=== PATIENT | female | born 1935 | race Caucasian/White ===

== ENCOUNTER 2017-02-02 22:39 | Emergency (ER) | payer MEDICARE, BC ==
--- NOTE | 2017-02-02 23:39 | EDM.PDOC ---
ED HPI GENERAL MEDICAL PROBLEM - General Chief Complaint: Respiratory Problem Stated Complaint: coughing, choking whith pills Time Seen by Provider: 02/02/17 23:00 Source of Information: Reports: Patient, Family History Limitations: Reports: Other (patient does have dementia; answers most questions appropriately but repeats self frequently) - History of Present Illness INITIAL COMMENTS - FREE TEXT/NARRATIVE: Patient presents to the ER with concerns of choking on her pills and aspirating. She took her meds at around 930 tonight and started coughing shortly thereafter. relates she was coughing so hard and frequently it seemed as though she couldn't catch her breath. Patient was coughing up sputum that was green-tinged and he relates could have been her iron from earlier as both her evening pills are white. She felt as though something was stuck in her throat. On presentation, continues to cough but with my arrival less than when she arrived. Feels throat is now scratchy. Has not ever aspirated before. No concerns with dysphagia. relates she doesn't drink enough fluids and he is worried she is dry which makes swallowing the large pills more difficult. Onset: Today, Sudden Duration: Hour(s): Location: Reports: Chest Severity: Mild Associated Symptoms: Reports: Cough, cough w sputum. Denies: Chest Pain, Fever/ Chills, Nausea/Vomiting, Shortness of Breath - Related Data Allergies Allergy/AdvReac Type Severity Reaction Status Date / Time celecoxib [From Celebrex] Allergy Swelling Verified 02/02/17 22:49 prednisone Allergy Rash Verified 02/02/17 22:49 Home Meds: Home Meds Gabapentin [Neurontin] 100 mg PO BEDTIME 02/18/14 [History] Levothyroxine 50 mcg PO ACBRK 02/18/14 [History] Cholecalciferol (Vitamin D3) [Vitamin D3] 1,000 unit PO DAILY 08/04/16 [History] Aspirin [Halfprin] 81 mg PO DAILY 09/14/16 [History] Clopidogrel [Plavix] 75 mg PO DAILY 09/14/16 [History] Docusate Sodium 100 mg PO ASDIRECTED 09/14/16 [History] Ferrous Sulfate 325 mg PO BID 09/14/16 [History] Metoprolol Succinate [Toprol Xl] 12.5 mg PO DAILY 09/14/16 [History] Nitroglycerin 0.4 mg PO ASDIRECTED PRN 09/14/16 [History] atorvaSTATin [Lipitor] 40 mg PO DAILY 09/14/16 [History] Donepezil [Aricept] 10 mg PO BEDTIME 02/02/17 [History] Past Medical History HEENT History: Reports: Cataract, Other (See Below) Other HEENT History: tinea Cardiovascular History: Reports: Cardiomyopathy, High Cholesterol, Hypertension , Other (See Below) Other Cardiovascular History: aortic valve reguritation, possible [place] with this July 2016 hospitalization Respiratory History: Reports: Asthma, SOB Genitourinary History: Reports: UTI, Recurrent, Other (See Below) Other Genitourinary History: nocturia; acute renal failure from history Jul 2016 [employer] 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: Other (See Below) Other OB/BYN History: fibrocystic breast disease Musculoskeletal History: Reports: Arthritis, Osteoporosis, Other (See Below) Other Musculoskeletal History: rheumatic fever, Neurological History: Reports: MS, Neuropathy, Peripheral Psychiatric History: Reports: Anxiety, Dementia Other Psychiatric History: dementia Endocrine/Metabolic History: Reports: Hypothyroidism Hematologic History: Reports: B12 Deficiency - Past Surgical History HEENT Surgical History: Reports: Adenoidectomy, Cataract Surgery, Tonsillectomy GI Surgical History: Reports: Colonoscopy Other GI Surgeries/Procedures: had some diarrhea while in hospital in [place] in July 2016 Neurological Surgical History: Reports: None Musculoskeletal Surgical History: Reports: Other (See Below) Dermatological Surgical History: Reports: None Social & Family History - Family History Family Medical History: Noncontributory HEENT: Reports: None Respiratory: Reports: None - Tobacco Use Smoking Status *Q: Former Smoker Used Tobacco, but Quit: Yes Month Tobacco Last Used: 30 YRS Tobacco Use Comment: PT QUIT 30 YEARS AGO Second Hand Smoke Exposure: No - Caffeine Use Caffeine Use: Reports: Coffee - Alcohol Use Days Per Week of Alcohol Use: 7 Number of Drinks Per Day: 1 Total Drinks Per Week: 7 - Recreational Drug Use Recreational Drug Use: No ED ROS GENERAL - Review of Systems Review Of Systems: See Below Constitutional: Denies: Fever, Chills, Malaise, Weakness, Decreased Appetite HEENT: Reports: Other (foreign object in throat) Respiratory: Reports: Shortness of Breath, Cough, Sputum. Denies: Wheezing Cardiovascular: Denies: Chest Pain, Edema, Lightheadedness Endocrine: Reports: No Symptoms GI/Abdominal: Denies: Abdominal Pain, Nausea, Vomiting : Reports: No Symptoms Musculoskeletal: Reports: No Symptoms Skin: Reports: No Symptoms Psychiatric: Reports: Other (mild confusion due to dementia, relates normal state) ED EXAM, GENERAL - Physical Exam Exam: See Below Exam Limited By: No Limitations General Appearance: Alert, WD/WN, No Apparent Distress Ears: Normal External Exam, Normal TMs Nose: Normal Inspection, Normal Mucosa, No Blood Throat/Mouth: Normal Inspection, Normal Oropharynx Head: Normocephalic Neck: Normal Inspection, Supple, Non-Tender Respiratory/Chest: No Respiratory Distress, Wheezing Cardiovascular: Regular Rate, Rhythm GI/Abdominal: Normal Bowel Sounds, Soft, Non-Tender Course - Vital Signs Last Recorded V/S: Last Vital Signs Temp 97.2 F 02/02/17 22:43 Pulse 57 L 02/02/17 22:43 Resp 18 02/02/17 22:43 BP 159/99 H 02/02/17 22:43 Pulse Ox 97 02/02/17 22:43 - Orders/Labs/Meds Orders: Active Orders 24 hr Category Date Time Status Chest 2V [CR] Stat Exams 02/02/17 23:39 Ordered Meds: Medications Discontinued Medications Generic Name Dose Route Start Last Admin Trade Name Freq PRN Reason Stop Dose Admin Al Hydroxide/Mg Hydroxide 30 0 ml 02/02/17 23:54 02/03/17 00:09 ml/ Lidocaine HCl 15 ml PO 02/02/17 23:55 45 ml ONETIME ONE Administration - Re-Assessments/Exams Free Text/Narrative Re-Assessment/Exam: 02/03/17 00:26 Patient's coughing has lessened over the last 90 minutes. Has been drinking Sprite without concern. GI cocktail was given. No longer feels like she has anything stuck, throat just feels scratchy. here and advised if she has any further issues, needs to return to ER Departure - Departure Time of Disposition: 00:28 Disposition: Home, Self-Care 01 Condition: Good Clinical Impression: Dysphagia - Discharge Information Forms: ED Department Discharge Additional Instructions: 1. Rest 2. Push fluids 3. Cut pills in half if needed, take with more water 4. Return if cough persists, worsens, develops fever or has shortness of breath - My Orders Last 24 Hours: My Active Orders 02/02/17 23:39 Chest 2V [CR] Stat - Assessment/Plan Last 24 Hours: My Active Orders 02/02/17 23:39 Chest 2V [CR] Stat
[2017-02-02] MEDS ORDERED: Alum Hydrox/Mag Hydrox/Simeth 30 ML, Lidocaine 2% 15 ML PO ONE ×2 (23:54)
[2017-02-03 00:48] VITALS: BP 159/76
== END 2017-02-03 00:35 | disposition home or self-care (01) ==
LOC: CC.ED 22:39
DX: R13.10 Dysphagia, unspecified (principal); I11.9 Hypertensive heart disease without heart failure; E78.00 Pure hypercholesterolemia, unspecified; J45.909 Unspecified asthma, uncomplicated; M19.90 Unspecified osteoarthritis, unspecified site; M81.0 Age-related osteoporosis without current pathological fracture; G35 Multiple sclerosis; F41.9 Anxiety disorder, unspecified; F03.90 Unspecified dementia, unspecified severity, without behavioral disturbance, psychotic disturbance, mood disturbance, and anxiety; E03.9 Hypothyroidism, unspecified; Z87.440 Personal history of urinary (tract) infections; Z87.891 Personal history of nicotine dependence; Z79.82 Long term (current) use of aspirin; Z79.899 Other long term (current) drug therapy; Z88.8 Allergy status to other drugs, medicaments and biological substances
CPT/HCPCS: 71020; 99283; A9270

== ENCOUNTER 2017-11-15 22:12 | Inpatient (IN) | payer MEDICARE, BC ==
[2017-11-15] MEDS ORDERED: Albuterol/Ipratropium 3.0-0.5 MG/3 ML Neb Soln ONE (22:13)
[2017-11-15 22:39] LABS: CHLORIDE,CL 106 mEq/L (98-106); SODIUM,NA 140 mEq/L (136-145)
[2017-11-15] MEDS ORDERED: Albuterol 0.083% 2.5 MG/3 ML Neb Soln NEB PRN (23:34)
[2017-11-15] MEDS ORDERED: Acetaminophen 325 MG Tab PO PRN (23:34)
--- NOTE | 2017-11-15 23:37 | EDM.PDOC ---
ED HPI GENERAL MEDICAL PROBLEM - General Chief Complaint: Respiratory Problem Stated Complaint: SHORT OF BREATH Time Seen by Provider: 11/15/17 22:20 Source of Information: Reports: Patient, Family History Limitations: Reports: Altered Mental Status (history of dementia), Respiratory Distress - History of Present Illness INITIAL COMMENTS - FREE TEXT/NARRATIVE: Belen is an 82 yo female who presents to the ER via private vehicle. Her brought her into the ER, accompanied by their daughter with concerns of shortness of breath. Joan, daughter, admits they are concerned of aspiration pneumonia. states while they were eating yesterday she had almost choked on a piece of food (doesn't recall what they were eating though) and she had a severe coughing spell. He states after she came out of it she appeared to be fine and ended up eating the rest of her meal. Through out the day today it seemed as her coughing had worsened and was having some difficulty breathing and talking. She wanted to go to [facility] this evening and her daughter states a friend had called her stating that Belen wasn't doing well at [facility]. They admit that Belen does suffer from dementia that has been progressively worsening as well. Up until last night she has been feeling well. - Related Data Allergies Allergy/AdvReac Type Severity Reaction Status Date / Time celecoxib [From Celebrex] Allergy Swelling Verified 11/15/17 22:48 prednisone Allergy Rash Verified 11/15/17 22:48 Home Meds: Home Meds Levothyroxine 50 mcg PO ACBRK 02/18/14 [History] Aspirin [Halfprin] 81 mg PO DAILY 09/14/16 [History] Ferrous Sulfate 325 mg PO DAILY 09/14/16 [History] Nitroglycerin 0.4 mg PO ASDIRECTED PRN 09/14/16 [History] atorvaSTATin [Lipitor] 40 mg PO DAILY 09/14/16 [History] Donepezil [Aricept] 10 mg PO BEDTIME 02/02/17 [History] Lisinopril 5 mg PO DAILY 11/15/17 [History] Memantine HCl 10 mg PO BID 11/15/17 [History] Past Medical History HEENT History: Reports: Cataract, Other (See Below) Other HEENT History: tinea Cardiovascular History: Reports: Cardiomyopathy, High Cholesterol, Hypertension , Other (See Below) Other Cardiovascular History: aortic valve reguritation, possible [place] with this July 2016 hospitalization Respiratory History: Reports: Asthma, SOB Genitourinary History: Reports: UTI, Recurrent, Other (See Below) Other Genitourinary History: nocturia; acute renal failure from history Jul 2016 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 (See Below) Other OB/BYN History: fibrocystic breast disease Musculoskeletal History: Reports: Arthritis, Osteoporosis, Other (See Below) Other Musculoskeletal History: rheumatic fever, Neurological History: Reports: MS, Neuropathy, Peripheral Psychiatric History: Reports: Anxiety, Dementia Other Psychiatric History: dementia Endocrine/Metabolic History: Reports: Hypothyroidism Hematologic History: Reports: B12 Deficiency - Past Surgical History HEENT Surgical History: Reports: Adenoidectomy, Cataract Surgery, Tonsillectomy GI Surgical History: Reports: Colonoscopy Other GI Surgeries/Procedures: had some diarrhea while in hospital in [place] in July 2016 Neurological Surgical History: Reports: None Musculoskeletal Surgical History: Reports: Other (See Below) Dermatological Surgical History: Reports: None Social & Family History - Family History Family Medical History: Noncontributory HEENT: Reports: None Respiratory: Reports: None - Tobacco Use Smoking Status *Q: Former Smoker Used Tobacco, but Quit: Yes Month/Year Tobacco Last Used: quit 25 years ago Second Hand Smoke Exposure: No - Caffeine Use Caffeine Use: Reports: Coffee - Alcohol Use Days Per Week of Alcohol Use: 7 Number of Drinks Per Day: 1 Total Drinks Per Week: 7 - Recreational Drug Use Recreational Drug Use: No ED ROS GENERAL - Review of Systems Review Of Systems: See Below Constitutional: Reports: Weakness. Denies: Fever HEENT: Reports: No Symptoms Respiratory: Reports: Shortness of Breath, Wheezing, Cough. Denies: Sputum Cardiovascular: Reports: Edema GI/Abdominal: Reports: No Symptoms : Reports: No Symptoms Neurological: Reports: Confusion ED EXAM, GENERAL - Physical Exam Exam: See Below Exam Limited By: Respiratory Distress General Appearance: Alert, Moderate Distress, Severe Distress Nose: Normal Inspection, Normal Mucosa, No Blood Throat/Mouth: Normal Lips, No Airway Compromise Head: Atraumatic, Normocephalic Neck: Normal Inspection, Supple Respiratory/Chest: Respiratory Distress, Decreased Breath Sounds (right lung), Wheezing, Accessory Muscle Use, Prolonged Expiration. No: Stridor Cardiovascular: Bradycardia, Irregularly Irregular Peripheral Pulses: 1+: Posterior Tibial (L), Posterior Tibial (R), Dorsalis Pedis (L), Dorsalis Pedis (R) GI/Abdominal: Normal Bowel Sounds, Soft, No Distention, No Mass Extremities: Pedal Edema (left greater than right, 1+ right, 2+ left) Neurological: Alert, Slow to Respond, Memory Loss Recent Events Skin Exam: Warm, Dry, Intact, Normal Color, No Rash Course - Vital Signs Last Recorded V/S: Last Vital Signs Temp 96.8 F 11/15/17 23:15 Pulse 47 L 11/15/17 23:15 Resp 20 11/15/17 23:15 BP 207/78 H 11/15/17 23:15 Pulse Ox 96 11/15/17 23:15 - Orders/Labs/Meds Orders: Active Orders 24 hr Category Date Time Status Patient Status [ADT] Routine ADT 11/15/17 23:34 Active Bedrest [RC] ASDIRECTED Care 11/15/17 23:34 Active Oxygen Therapy [RC] PRN Care 11/15/17 23:34 Active Oxygen Therapy, ED [RC] ASDIRECTED Care 11/15/17 22:12 Active Pulse Oximetry [RC] CONTINUOUS Care 11/15/17 23:34 Active RT Aerosol Therapy [RC] ASDIRECTED Care 11/15/17 23:34 Active VTE/DVT Education [RC] PER UNIT ROUTINE Care 11/15/17 23:34 Active Vital Signs [RC] Q4H Care 11/15/17 23:34 Active Mechanical Soft Diet [DIET] Diet 11/15/17 Breakfast Active CXR [Chest 1V Frontal] [CR] Stat Exams 11/15/17 22:20 Taken BASIC METABOLIC PANEL,BMP [CHEM] AM Lab 11/16/17 05:11 Ordered C-REACTIVE PROTEIN [CHEM] AM Lab 11/16/17 05:11 Ordered CBC WITH AUTO DIFF [HEME] AM Lab 11/16/17 05:11 Ordered Acetaminophen [Tylenol] Med 11/15/17 23:34 Ordered 650 mg PO Q4H PRN Albuterol [Proventil Neb Soln] Med 11/15/17 23:34 Ordered 2.5 mg NEB Q2H PRN Albuterol/Ipratropium [DuoNeb 3.0-0.5 MG/3 ML] Med 11/16/17 08:00 Ordered 3 ml NEB QID Clindamycin Phosphate in D5W [Cleocin in D5W] 600 mg Med 11/15/17 23:34 Ordered Premix Bag 1 bag IV Q6H Enoxaparin [Lovenox] Med 11/15/17 23:34 Ordered 30 mg SUBCUT Q24H Sodium Chloride 0.9% [Normal Saline] 1,000 ml Med 11/15/17 23:34 Ordered IV ASDIRECTED Resuscitation Status Routine Resus Stat 11/15/17 23:19 Ordered Medication Orders Acetaminophen (Tylenol) 650 mg PO Q4H PRN PRN Reason: Pain (Mild 1-3)/fever Albuterol (Proventil Neb Soln) 2.5 mg NEB Q2H PRN PRN Reason: Shortness Of Breath/wheezing Albuterol/Ipratropium (Duoneb 3.0-0.5 Mg/3 Ml) 3 ml NEB QIDRT [facility] Enoxaparin Sodium (Lovenox) 30 mg SUBCUT Q24H [facility] Ferrous Sulfate (Ferrous Sulfate) 324 mg PO DAILY [facility] Clindamycin Phosphate 600 mg/ (Premix) 50 mls @ 100 mls/hr IV Q6H [facility] Sodium Chloride (Normal Saline) 1,000 mls @ 60 mls/hr IV ASDIRECTED [facility] Levothyroxine Sodium (Synthroid) 50 mcg PO ACBRK [facility] Lisinopril (Prinivil) 5 mg PO DAILY [facility] Methylprednisolone Sodium Succinate (Solu-Medrol) 62.5 mg IVPUSH Q12H [facility] Labs: Laboratory Tests 11/15/17 11/15/17 11/15/17 Range/Units 22:20 22:20 22:20 WBC 22.1 H* (5.0-10.0) 10^3/uL RBC 4.49 (4.00-5.50) 10^6/uL Hgb 13.7 (12.0-16.0) g/dL Hct 43.7 (37.0-47.0) % MCV 97.3 H (82.0-94.0) fL MCH 30.5 (27.0-32.0) pg MCHC 31.4 L (33.0-38.0) g/dL RDW Coeff of Clary 14.7 (11.0-15.0) % Plt Count 212 (150-400) 10^3/uL Add Manual Diff Yes Neutrophils % (Manual) 80 (35-85) % Lymphocytes % (Manual) 11 L (21-55) % Monocytes % (Manual) 9 (2-12) % D-Dimer, Quantitative 6.94 H (0.00-0.50) Sodium 140 (136-145) mEq/L Potassium 3.3 L (3.5-5.0) mEq/L Chloride 106 (98-106) mEq/L Carbon Dioxide 25 (21-32) mmol/L BUN 34 H (7-18) mg/dL Creatinine 1.4 H D (0.6-1.0) mg/dL Est Cr Clr Drug Dosing TNP Estimated GFR (MDRD) 36 L (>=60) mL/min Glucose 233 H D (75-99) mg/dL Calcium 8.8 (8.4-10.1) mg/dL Total Bilirubin 0.5 (0.0-1.0) mg/dL AST 47 H (15-37) U/L ALT 72 (12-78) U/L Alkaline Phosphatase 191 H (46-116) U/L Lactate Dehydrogenase 220 H (100-190) U/L Creatine Kinase 81 (21-215) U/L Troponin I 0.054 (0.00-0.06) ng/mL C-Reactive Protein 0.9 H (0.2-0.8) mg/dL Total Protein 6.8 (6.4-8.2) g/dL Albumin 3.3 L (3.4-5.0) g/dL Meds: Medications Generic Name Dose Route Start Last Admin Trade Name Freq PRN Reason Stop Dose Admin Acetaminophen 650 mg 11/15/17 23:34 Tylenol PO Q4H PRN Pain (Mild 1-3)/fever Albuterol 2.5 mg 11/15/17 23:34 Proventil Neb Soln NEB Q2H PRN Shortness Of Breath/wheezing Albuterol/Ipratropium 3 ml 11/16/17 08:00 Duoneb 3.0-0.5 Mg/3 Ml NEB QIDRT [facility] Enoxaparin Sodium 30 mg 11/16/17 00:00 Lovenox SUBCUT Q24H [facility] Ferrous Sulfate 324 mg 11/16/17 08:00 Ferrous Sulfate PO DAILY [facility] Clindamycin Phosphate 600 mg/ 50 mls @ 100 mls/hr 11/16/17 00:00 Premix IV Q6H [facility] Sodium Chloride 1,000 mls @ 60 mls/hr 11/15/17 23:34 Normal Saline IV ASDIRECTED [facility] Levothyroxine Sodium 50 mcg 11/16/17 07:00 Synthroid PO ACBRK [facility] Lisinopril 5 mg 11/16/17 08:00 Prinivil PO DAILY [facility] Methylprednisolone Sodium Succinate 62.5 mg 11/15/17 23:45 Solu-Medrol IVPUSH Q12H [facility] Discontinued Medications Generic Name Dose Route Start Last Admin Trade Name Freq PRN Reason Stop Dose Admin Albuterol/Ipratropium Confirm 11/15/17 22:13 11/15/17 22:25 Duoneb 3.0-0.5 Mg/3 Ml Administered 11/15/17 22:14 3 ml Dose Administration 3 ml .ROUTE .STK-MED ONE Departure - Departure Time of Disposition: 23:30 Disposition: Admitted As Inpatient 65 Condition: Critical Clinical Impression: Aspiration pneumonia, Palliative care patient - Discharge Information - Problem List & Annotations (1) Aspiration pneumonia SNOMED Code(s): 091341226 Code(s): J69.0 - PNEUMONITIS DUE TO INHALATION OF FOOD AND VOMIT Status: Acute Priority: High Current Visit: No Qualifiers: Aspiration pneumonia type: due to regurgitated food Laterality: right Lung location: unspecified part of lung Qualified Code(s): J69.0 - Pneumonitis due to inhalation of food and vomit (2) Palliative care patient SNOMED Code(s): 359466019 Code(s): Z51.5 - ENCOUNTER FOR PALLIATIVE CARE Status: Acute Priority: High Current Visit: No - Problem List Review Problem List Initiated/Reviewed/Updated: Yes - My Orders Last 24 Hours: My Active Orders 11/15/17 22:12 Oxygen Therapy, ED [RC] ASDIRECTED 11/15/17 22:20 CXR [Chest 1V Frontal] [CR] Stat 11/15/17 23:19 Resuscitation Status Routine 11/15/17 23:34 Patient Status [ADT] Routine Bedrest [RC] ASDIRECTED Oxygen Therapy [RC] PRN Pulse Oximetry [RC] CONTINUOUS RT Aerosol Therapy [RC] ASDIRECTED VTE/DVT Education [RC] PER UNIT ROUTINE Vital Signs [RC] Q4H Acetaminophen [Tylenol] 650 mg PO Q4H PRN Albuterol [Proventil Neb Soln] 2.5 mg NEB Q2H PRN Clindamycin Phosphate in D5W [Cleocin in D5W] 600 mg Premix Bag 1 bag IV Q6H Enoxaparin [Lovenox] 30 mg SUBCUT Q24H Sodium Chloride 0.9% [Normal Saline] 1,000 ml IV ASDIRECTED 11/15/17 Breakfast Mechanical Soft Diet [DIET] 11/16/17 05:11 BASIC METABOLIC PANEL,BMP [CHEM] AM C-REACTIVE PROTEIN [CHEM] AM CBC WITH AUTO DIFF [HEME] AM 11/16/17 08:00 Albuterol/Ipratropium [DuoNeb 3.0-0.5 MG/3 ML] 3 ml NEB QID - Assessment/Plan Admission H&P: Please use this note as an admission H&P Last 24 Hours: My Active Orders 11/15/17 22:12 Oxygen Therapy, ED [RC] ASDIRECTED 11/15/17 22:20 CXR [Chest 1V Frontal] [CR] Stat 11/15/17 23:19 Resuscitation Status Routine 11/15/17 23:34 Patient Status [ADT] Routine Bedrest [RC] ASDIRECTED Oxygen Therapy [RC] PRN Pulse Oximetry [RC] CONTINUOUS RT Aerosol Therapy [RC] ASDIRECTED VTE/DVT Education [RC] PER UNIT ROUTINE Vital Signs [RC] Q4H Acetaminophen [Tylenol] 650 mg PO Q4H PRN Albuterol [Proventil Neb Soln] 2.5 mg NEB Q2H PRN Clindamycin Phosphate in D5W [Cleocin in D5W] 600 mg Premix Bag 1 bag IV Q6H Enoxaparin [Lovenox] 30 mg SUBCUT Q24H Sodium Chloride 0.9% [Normal Saline] 1,000 ml IV ASDIRECTED 11/15/17 Breakfast Mechanical Soft Diet [DIET] 11/16/17 05:11 BASIC METABOLIC PANEL,BMP [CHEM] AM C-REACTIVE PROTEIN [CHEM] AM CBC WITH AUTO DIFF [HEME] AM 11/16/17 08:00 Albuterol/Ipratropium [DuoNeb 3.0-0.5 MG/3 ML] 3 ml NEB QID Plan: Belen was given nebulizer treatment initially in ER due to respiratory distress with oxygen saturation in the high 60's. She responded well and oxygen saturation climbed into the mid 90's. We then attempted to put her on nasal cannula, which her oxygen saturation slowly declined. Elected to keep her on non -rebreather with oxygen sats in the 90's. Chest x-ray confirmed aspiration pneumonia of the right lung. I discussed with family elevated WBC and D-dimer. Further information in regards to elevated D-dimer with differential diagnosis to be aspiration pneumonia vs PE. They declined CT of the chest at this time. Consulted with family in regards to the seriousness of Belen's condition. I initially discussed code level and there wishes in regards to further treatment including definitive airway (intubation), transfer, etc... Family declined any resuscitative efforts and they stated she would not want any of these measures done. They did agree with attempting to treat the pneumonia with antibiotics, steroids and nebulizer treatments. I discussed palliative care with my concerns of her current status, which family was in agreement and verbalized understanding. It appears she has an allergy listed for prednisone, which was updated in her clinic chart, back in 2013 that appeared to cause her a rash. No other documentation is seen in regards to this. I reviewed her past medications and she was given Depo Medrol intramuscularly since then. Family doesn't recall any allergy to prednisone.
[2017-11-15] MEDS ORDERED: methylPREDNISolone Sodium Succinate 125 MG/2 ML SDV IVPUSH SCH (23:45)
[2017-11-16] MEDS ORDERED: Enoxaparin 30 MG/0.3 ML Syringe SUBCUT SCH
[2017-11-16] MEDS: Sodium Chloride 0.9% 1,000 ML IV SCH ×2 (00:05→19:42)
[2017-11-16] MEDS: Clindamycin Phosphate in D5W 600 MG in Premix Bag 1 BAG IV SCH ×10 (00:09→23:45)
[2017-11-16] MEDS: Levothyroxine 50 MCG Tab PO SCH (06:05)
[2017-11-16] MEDS: Albuterol/Ipratropium 3.0-0.5 MG/3 ML Neb Soln NEB SCH ×4 (07:29→19:41)
[2017-11-16] MEDS: Ferrous Sulfate 324 MG Tab.EC PO SCH (07:29)
[2017-11-16] MEDS: Lisinopril 5 MG Tab PO SCH (07:32)
--- NOTE | 2017-11-16 11:21 | PN ---
DATE: 11/16/2017 S: Belen Jackson is an 82-year-old female, coming in with [id number] right lower lobe pneumonitis, probably aspiration. Family wants her kept comfortable. No tests like CAT scans or echoes or anything. O: NECK: Supple. CHEST: Crepitus, decreased breath sounds in right lower lobe. CARDIAC: Sounds are good. Minimal edema. ASSESSMENT: PNEUMONITIS, POSSIBLE ASPIRATION. P: Continue present therapy. COLEEN/ANA /[id number]
[2017-11-16] MEDS: Enoxaparin 30 MG/0.3 ML Syringe SUBCUT SCH (16:36)
[2017-11-16] MEDS: methylPREDNISolone Sodium Succinate 125 MG/2 ML SDV IVPUSH SCH (16:46)
[2017-11-17] MEDS: Clindamycin Phosphate in D5W 600 MG in Premix Bag 1 BAG IV SCH ×8 (06:13→23:48)
[2017-11-17] MEDS: Levothyroxine 50 MCG Tab PO SCH (06:14)
[2017-11-17] MEDS: Lisinopril 5 MG Tab PO SCH (07:31)
[2017-11-17] MEDS: Albuterol/Ipratropium 3.0-0.5 MG/3 ML Neb Soln NEB SCH ×4 (07:31→19:34)
[2017-11-17] MEDS: Ferrous Sulfate 324 MG Tab.EC PO SCH (07:31)
[2017-11-17] MEDS: methylPREDNISolone Sodium Succinate 125 MG/2 ML SDV IVPUSH SCH ×2 (07:33→15:12)
--- NOTE | 2017-11-17 08:07 | PCM.PN ---
- General Info Date of Service: 11/17/17 Admission Dx/Problem (Free Text): RLL Aspiration Pneumonia Palliative Care Subjective Update: Patient reports she is feeling much better. She denies shortness of breath at rest. Reports she does continue to cough some. O2 needs have decreased greatly. Is currently sating 97% on 2L. Nursing staff report she was up and showered yesterday. They report she has been eating well. Has not been coughing with eating. Tolerating liquids well. No difficulties swallowing. WBC has improved greatly since admission. Down to 11.2 today. Functional Status: Reports: Pain Controlled, Tolerating Diet, Ambulating, Urinating. Denies: New Symptoms - Review of Systems General: Reports: Weakness, Fatigue. Denies: Fever, Chills HEENT: Reports: No Symptoms Pulmonary: Reports: Cough, Sputum, Wheezing. Denies: Shortness of Breath Cardiovascular: Reports: Dyspnea on Exertion. Denies: Edema Gastrointestinal: Reports: No Symptoms. Denies: Abdominal Pain, Constipation, Diarrhea, Nausea, Vomiting Genitourinary: Reports: No Symptoms Musculoskeletal: Reports: No Symptoms Skin: Reports: No Symptoms Neurological: Reports: Confusion, Weakness Psychiatric: Reports: Confusion (dementia) - Patient Data Vitals - Most Recent: Last Vital Signs Temp 97.6 F 11/17/17 07:18 Pulse 32 L 11/17/17 07:18 Resp 18 11/17/17 07:18 BP 150/48 H 11/17/17 07:31 Pulse Ox 100 11/17/17 07:18 Weight - Most Recent: 113 lb 8 oz I&O - Last 24 Hours: Intake & Output 11/16/17 11/17/17 11/17/17 22:59 06:59 14:59 Intake Total 1750 50 Output Total 150 200 Balance 1600 -150 Lab Results Last 24 Hours: Laboratory Results - last 24 hr 11/17/17 11/17/17 Range/Units 07:01 07:01 WBC 11.2 H (5.0-10.0) 10^3/uL RBC 3.56 L (4.00-5.50) 10^6/uL Hgb 10.7 L (12.0-16.0) g/dL Hct 33.8 L (37.0-47.0) % MCV 94.9 H (82.0-94.0) fL MCH 30.1 (27.0-32.0) pg MCHC 31.7 L (33.0-38.0) g/dL RDW Coeff of Clary 14.6 (11.0-15.0) % Plt Count 134 L (150-400) 10^3/uL Neut % (Auto) 88.8 H (35-85) % Lymph % (Auto) 6.5 L (10-55) % Calvert % (Auto) 4.6 (0-16) % Eos % (Auto) 0 (0-5) % Baso % (Auto) 0.1 (0-3) % Neut # (Auto) 9.97 H (1.80-7.00) 10^3/uL Lymph # (Auto) 0.73 L (1.00-4.80) 10^3/uL Calvert # (Auto) 0.52 (0.00-0.80) 10^3/uL Eos # (Auto) 0.00 (0.00-0.45) 10^3/uL Baso # (Auto) 0.01 10^3/uL Sodium 140 (136-145) mEq/L Potassium 4.4 (3.5-5.0) mEq/L Chloride 106 (98-106) mEq/L Carbon Dioxide 25 (21-32) mmol/L BUN 45 H (7-18) mg/dL Creatinine 1.4 H (0.6-1.0) mg/dL Est Cr Clr Drug Dosing 22.97 mL/min Estimated GFR (MDRD) 36 L (>=60) mL/min Glucose 152 H (75-99) mg/dL Calcium 8.2 L (8.4-10.1) mg/dL Med Orders - Current: Current Medications Acetaminophen (Tylenol) 650 mg PO Q4H PRN PRN Reason: Pain (Mild 1-3)/fever Albuterol (Proventil Neb Soln) 2.5 mg NEB Q2H PRN PRN Reason: Shortness Of Breath/wheezing Albuterol/Ipratropium (Duoneb 3.0-0.5 Mg/3 Ml) 3 ml NEB QIDRT [facility] Last Admin: 11/17/17 07:31 Dose: 3 ml Enoxaparin Sodium (Lovenox) 30 mg SUBCUT DAILY@1600 [facility] Last Admin: 11/16/17 16:36 Dose: 30 mg Ferrous Sulfate (Ferrous Sulfate) 324 mg PO DAILY [facility] Last Admin: 11/17/17 07:31 Dose: 324 mg Clindamycin Phosphate 600 mg/ (Premix) 50 mls @ 100 mls/hr IV Q6H [facility] Last Admin: 11/17/17 06:13 Dose: 100 mls/hr Sodium Chloride (Normal Saline) 1,000 mls @ 60 mls/hr IV ASDIRECTED [facility] Last Admin: 11/16/17 19:42 Dose: 60 mls/hr Levothyroxine Sodium (Synthroid) 50 mcg PO ACBRK [facility] Last Admin: 11/17/17 06:14 Dose: 50 mcg Lisinopril (Prinivil) 5 mg PO DAILY [facility] Last Admin: 11/17/17 07:31 Dose: 5 mg Methylprednisolone Sodium Succinate (Solu-Medrol) 62.5 mg IVPUSH 0800,1600 [facility] Last Admin: 11/17/17 07:33 Dose: 62.5 mg Discontinued Medications Albuterol/Ipratropium (Duoneb 3.0-0.5 Mg/3 Ml) Confirm Administered Dose 3 ml .ROUTE .STK-MED ONE Stop: 11/15/17 22:14 Last Admin: 11/15/17 22:25 Dose: 3 ml Enoxaparin Sodium (Lovenox) 30 mg SUBCUT Q24H [facility] Last Admin: 11/16/17 00:06 Dose: 30 mg Methylprednisolone Sodium Succinate (Solu-Medrol) 62.5 mg IVPUSH Q12H [facility] Last Admin: 11/16/17 00:07 Dose: 62.5 mg - Exam Quality Assessment: Supplemental Oxygen, DVT Prophylaxis General: Alert Neck: Supple Lungs: Normal Respiratory Effort, Decreased Breath Sounds, Crackles (RLL), Wheezing (RLL) Cardiovascular: Regular Rate, Irregular Rhythm GI/Abdominal Exam: Normal Bowel Sounds, Soft, Non-Tender, No Organomegaly, No Distention, No Abnormal Bruit, No Mass, Pelvis Stable Back Exam: Normal Inspection, Full Range of Motion Extremities: Normal Inspection, Normal Range of Motion, Non-Tender, No Pedal Edema, Normal Capillary Refill Skin: Warm, Dry, Intact Neurological: No New Focal Deficit Psy/Mental Status: Alert, Normal Affect, Normal Mood - Problem List & Annotations (1) Aspiration pneumonia SNOMED Code(s): 463687697 Code(s): J69.0 - PNEUMONITIS DUE TO INHALATION OF FOOD AND VOMIT Status: Acute Priority: High Current Visit: No Qualifiers: Aspiration pneumonia type: due to regurgitated food Laterality: right Lung location: unspecified part of lung Qualified Code(s): J69.0 - Pneumonitis due to inhalation of food and vomit (2) Palliative care patient SNOMED Code(s): 211633388 Code(s): Z51.5 - ENCOUNTER FOR PALLIATIVE CARE Status: Acute Priority: High Current Visit: No (3) HTN, Benign hypertension SNOMED Code(s): 22358046 Code(s): I10 - ESSENTIAL (PRIMARY) HYPERTENSION Status: Chronic Current Visit: No (4) Multiple sclerosis SNOMED Code(s): 32925062 Code(s): G35 - MULTIPLE SCLEROSIS Status: Chronic Current Visit: No - Problem List Review Problem List Initiated/Reviewed/Updated: Yes - Plan Plan:: Remove Alvarez catheter. Encourage activity. Ambulate and sit in chair as able. Consult physical therapy to assess. Advance diet to regular. agrees with this. He reports she normally does not have difficulty swallowing. He feels she just swallowed wrong. Continue all other current cares. WBC trending down. 11.2 today. Creatinine stable at baseline 1.4. Anticipate 1-2 more days of IV antibiotics. Patient will need to be weaned off O2 before she is ready for discharge.
[2017-11-17] MEDS: Sodium Chloride 0.9% 1,000 ML IV SCH (13:03)
[2017-11-17] MEDS: Enoxaparin 30 MG/0.3 ML Syringe SUBCUT SCH (15:12)
[2017-11-18] MEDS: Sodium Chloride 0.9% 1,000 ML IV SCH (04:52)
[2017-11-18] MEDS: Clindamycin Phosphate in D5W 600 MG in Premix Bag 1 BAG IV SCH ×2 (05:40)
[2017-11-18] MEDS: Levothyroxine 50 MCG Tab PO SCH (06:03)
[2017-11-18 07:15] VITALS: BP 157/51
[2017-11-18] MEDS: Albuterol/Ipratropium 3.0-0.5 MG/3 ML Neb Soln NEB SCH (07:30)
[2017-11-18] MEDS: Ferrous Sulfate 324 MG Tab.EC PO SCH (07:31)
[2017-11-18] MEDS: Lisinopril 5 MG Tab PO SCH (07:31)
[2017-11-18] MEDS: methylPREDNISolone Sodium Succinate 125 MG/2 ML SDV IVPUSH SCH (07:33)
== END 2017-11-18 09:34 | disposition swing bed (61) | DRG 177 ==
LOC: CC.ED 22:12 → CC.MS 23:19 → UNDOADMIN 23:23 → CC.MS 23:23
PROVIDERS: ADMIT Physician Assistant Medical; ATTEND General Practice
DX: J69.0 Pneumonitis due to inhalation of food and vomit (principal); J96.01 Acute respiratory failure with hypoxia; I42.9 Cardiomyopathy, unspecified; R41.82 Altered mental status, unspecified; F03.90 Unspecified dementia, unspecified severity, without behavioral disturbance, psychotic disturbance, mood disturbance, and anxiety; B35.9 Dermatophytosis, unspecified; E78.00 Pure hypercholesterolemia, unspecified; I10 Essential (primary) hypertension; I25.2 Old myocardial infarction; I35.1 Nonrheumatic aortic (valve) insufficiency; J45.909 Unspecified asthma, uncomplicated; M19.90 Unspecified osteoarthritis, unspecified site; M81.0 Age-related osteoporosis without current pathological fracture; G35 Multiple sclerosis; G62.9 Polyneuropathy, unspecified; F41.9 Anxiety disorder, unspecified; E03.9 Hypothyroidism, unspecified; E53.8 Deficiency of other specified B group vitamins; R79.1 Abnormal coagulation profile; Z87.440 Personal history of urinary (tract) infections; Z88.8 Allergy status to other drugs, medicaments and biological substances; Z79.82 Long term (current) use of aspirin; Z87.891 Personal history of nicotine dependence; Z79.899 Other long term (current) drug therapy; Z51.5 Encounter for palliative care; R53.1 Weakness; R05 Cough; R06.02 Shortness of breath; R06.2 Wheezing; R60.0 Localized edema
CPT/HCPCS: 36415; 51702; 71045; 80048; 80053; 81001; 82550; 83615; 84484; 85025; 85379; 86140; 93005; 94640; 97110-GP; 97162-GP; 99285; A9270-GY; J1650; J2930; J7030

== ENCOUNTER 2017-11-18 09:37 | Inpatient (IN) | payer MEDICARE, BC ==
[2017-11-18] MEDS ORDERED: Acetaminophen 325 MG Tab PO PRN (10:14)
[2017-11-18] MEDS ORDERED: Albuterol 0.083% 2.5 MG/3 ML Neb Soln NEB PRN (10:14)
--- NOTE | 2017-11-18 10:20 | PCM.DCSUM1 ---
Discharge Summary - Hospital Course HPI Initial Comments: Belen is a 82 year old female who was admitting to the hospital from the ED on 11/15/2017 for RLL aspiration pneumonia. She originally presented in respiratory distress with O2 sats in the 60s. had reported that she started coughing while eating the day prior. CXR showed RLL infiltrate. WBC on admission was 22.1. Patient was started on clindamycin. WBC did trend down throughout hospital stay and was 12.2 at time of discharge. Patient was initially requiring > 10 L O2 nonrebreather. At time of discharge she was maintaining O2 sats > 94% on RA. Her lung sounds improved throughout stay. She did however still have some crackles to RLL. Kidney function was at baseline throughout stay. Cretinine 1.5. She will be discharged to swing bed for continued IV antibiotics. - Discharge Data Discharge Date: 11/18/17 Discharge Disposition: DC/Tfer W/I Hosp To [place] [id number] Condition: Good - Discharge Diagnosis/Problem(s) (1) Aspiration pneumonia SNOMED Code(s): 206396142 ICD Code: J69.0 - PNEUMONITIS DUE TO INHALATION OF FOOD AND VOMIT Status: Acute Priority: High Qualifiers: Aspiration pneumonia type: unspecified Laterality: right Lung location: lower lobe of lung Qualified Code(s): J69.0 - Pneumonitis due to inhalation of food and vomit (2) Palliative care patient SNOMED Code(s): 964327579 ICD Code: Z51.5 - ENCOUNTER FOR PALLIATIVE CARE Status: Acute Priority: High (3) HTN, Benign hypertension SNOMED Code(s): 32689749 ICD Code: I10 - ESSENTIAL (PRIMARY) HYPERTENSION Status: Chronic (4) Hyperlipidemia SNOMED Code(s): 58101892 ICD Code: E78.5 - HYPERLIPIDEMIA, UNSPECIFIED Status: Chronic (5) Multiple sclerosis SNOMED Code(s): 22631477 ICD Code: G35 - MULTIPLE SCLEROSIS Status: Chronic - Patient Summary/Data Consults: Consultations 11/18/17 10:14 PT Evaluation and Treatment [CONS] Routine - Patient Instructions Diet: Usual Diet as Tolerated Activity: As Tolerated - Discharge Plan Home Medications: Home Meds Levothyroxine 50 mcg PO ACBRK 02/18/14 [History] Aspirin [Halfprin] 81 mg PO DAILY 09/14/16 [History] Ferrous Sulfate 325 mg PO DAILY 09/14/16 [History] Nitroglycerin 0.4 mg PO ASDIRECTED PRN 09/14/16 [History] atorvaSTATin [Lipitor] 40 mg PO DAILY 09/14/16 [History] Donepezil [Aricept] 10 mg PO BEDTIME 02/02/17 [History] Lisinopril 5 mg PO DAILY 11/15/17 [History] Memantine HCl 10 mg PO BID 11/15/17 [History] - General Info Date of Service: 11/18/17 Admission Dx/Problem (Free Text: RLL Aspiration Pneumonia Subjective Update: Patient reports she is feeling much better. Breathing easy. Nursing staff has weaned her oxygen off. She is currently on RA. She is resting comfortably in chair. Functional Status: Reports: Pain Controlled, Tolerating Diet, Ambulating, Urinating. Denies: New Symptoms - Review of Systems General: Reports: Weakness. Denies: Fever, Fatigue, Chills HEENT: Reports: No Symptoms Pulmonary: Reports: Cough, Sputum. Denies: Shortness of Breath, Wheezing Cardiovascular: Reports: Dyspnea on Exertion. Denies: Chest Pain, Edema, Lightheadedness Gastrointestinal: Denies: Decreased Appetite, Diarrhea, Nausea, Vomiting Genitourinary: Denies: Dysuria, Frequency, Urgency Neurological: Reports: Confusion Psychiatric: Reports: No Symptoms - Patient Data Med Orders - Current: Current Medications Acetaminophen (Tylenol) 650 mg PO Q4H PRN PRN Reason: Pain (Mild 1-3)/fever Albuterol (Proventil Neb Soln) 2.5 mg NEB Q2H PRN PRN Reason: Shortness Of Breath/wheezing Albuterol/Ipratropium (Duoneb 3.0-0.5 Mg/3 Ml) 3 ml NEB QIDRT [facility] Enoxaparin Sodium (Lovenox) 30 mg SUBCUT DAILY@1600 [facility] Ferrous Sulfate (Ferrous Sulfate) 324 mg PO DAILY [facility] Clindamycin Phosphate 600 mg/ (Premix) 50 mls @ 100 mls/hr IV Q6H [facility] Levothyroxine Sodium (Synthroid) 50 mcg PO ACBRK [facility] Lisinopril (Prinivil) 5 mg PO DAILY [facility] Methylprednisolone Sodium Succinate (Solu-Medrol) 62.5 mg IVPUSH 0800,1600 [facility] - Exam Quality Assessment: Denies: Supplemental Oxygen General: Reports: Alert Neck: Reports: Supple Lungs: Reports: Normal Respiratory Effort, Crackles (RLL) Cardiovascular: Reports: Regular Rate, Regular Rhythm GI/Abdominal Exam: Normal Bowel Sounds, Soft, Non-Tender, No Organomegaly, No Distention, No Abnormal Bruit, No Mass, Pelvis Stable Extremities: Normal Inspection, Normal Range of Motion, Non-Tender, No Pedal Edema, Normal Capillary Refill Neurological: Reports: No New Focal Deficit Psy/Mental Status: Reports: Alert, Normal Affect, Normal Mood
[2017-11-18] MEDS: Albuterol/Ipratropium 3.0-0.5 MG/3 ML Neb Soln NEB SCH ×3 (12:23→20:37)
[2017-11-18] MEDS: Clindamycin Phosphate in D5W 600 MG in Premix Bag 1 BAG IV SCH ×4 (12:23→17:24)
[2017-11-18] MEDS: Enoxaparin 30 MG/0.3 ML Syringe SUBCUT SCH (16:10)
[2017-11-18] MEDS: methylPREDNISolone Sodium Succinate 125 MG/2 ML SDV IVPUSH SCH (16:11)
[2017-11-19] MEDS: Clindamycin Phosphate in D5W 600 MG in Premix Bag 1 BAG IV SCH ×8 (00:23→18:28)
[2017-11-19] MEDS: Levothyroxine 50 MCG Tab PO SCH (06:39)
[2017-11-19] MEDS: Albuterol/Ipratropium 3.0-0.5 MG/3 ML Neb Soln NEB SCH ×4 (07:31→20:32)
[2017-11-19] MEDS: Lisinopril 5 MG Tab PO SCH (07:31)
[2017-11-19] MEDS: Ferrous Sulfate 324 MG Tab.EC PO SCH (07:31)
[2017-11-19] MEDS: methylPREDNISolone Sodium Succinate 125 MG/2 ML SDV IVPUSH SCH ×2 (07:35→16:15)
[2017-11-19] MEDS: Enoxaparin 30 MG/0.3 ML Syringe SUBCUT SCH (16:12)
[2017-11-20] MEDS: Clindamycin Phosphate in D5W 600 MG in Premix Bag 1 BAG IV SCH ×8 (00:27→17:59)
[2017-11-20] MEDS: Levothyroxine 50 MCG Tab PO SCH (06:08)
[2017-11-20] MEDS: Albuterol/Ipratropium 3.0-0.5 MG/3 ML Neb Soln NEB SCH ×4 (07:30→21:20)
[2017-11-20] MEDS: Lisinopril 5 MG Tab PO SCH (07:30)
[2017-11-20] MEDS: Ferrous Sulfate 324 MG Tab.EC PO SCH (07:31)
[2017-11-20] MEDS: methylPREDNISolone Sodium Succinate 125 MG/2 ML SDV IVPUSH SCH ×2 (07:34→15:56)
[2017-11-20] MEDS: Enoxaparin 30 MG/0.3 ML Syringe SUBCUT SCH (15:51)
[2017-11-21] MEDS: Clindamycin Phosphate in D5W 600 MG in Premix Bag 1 BAG IV SCH ×6 (00:16→11:50)
[2017-11-21] MEDS: Levothyroxine 50 MCG Tab PO SCH (06:32)
[2017-11-21 07:20] VITALS: BP 169/57
[2017-11-21] MEDS: Lisinopril 5 MG Tab PO SCH (08:24)
[2017-11-21] MEDS: Ferrous Sulfate 324 MG Tab.EC PO SCH (08:24)
[2017-11-21] MEDS: Albuterol/Ipratropium 3.0-0.5 MG/3 ML Neb Soln NEB SCH ×2 (08:24→11:50)
[2017-11-21] MEDS: methylPREDNISolone Sodium Succinate 125 MG/2 ML SDV IVPUSH SCH (08:28)
--- NOTE | 2017-11-21 13:21 | PCM.DCSUM1 ---
Discharge Summary - Hospital Course HPI Initial Comments: Belen is a 82 year old female who was admitting to the hospital from the ED on 11/15/2017 for RLL aspiration pneumonia. She originally presented in respiratory distress with O2 sats in the 60s. had reported that she started coughing while eating the day prior. CXR showed RLL infiltrate. WBC on admission was 22.1. Patient was started on clindamycin and patient improved greatly. She was also recieving Duonebs and steroids. WBC did trend down throughout hospital stay and was 11.9 at time of discharge. Patient was initially requiring > 10 L O2 nonrebreather. At time of discharge she was maintaining O2 sats > 94% on RA for the previous four days. Her lung sounds improved throughout stay and were clear at the time of discharge. Kidney function was at baseline throughout stay. Cretinine 1.5. She will be discharged home with home health. She will be prescribed 3 additional days of clindamycin to finish course of antibiotics. She has advanced dementia, because of this she is unable to drive and is homebound. She will benefit from home health services. She will follow up with Dr. Campbell next week. - Discharge Data Discharge Date: 11/21/17 Discharge Disposition: Home, W Home Health Agency 06 Condition: Good - Discharge Diagnosis/Problem(s) (1) Aspiration pneumonia SNOMED Code(s): 864974308 ICD Code: J69.0 - PNEUMONITIS DUE TO INHALATION OF FOOD AND VOMIT Status: Acute Priority: High Qualifiers: Aspiration pneumonia type: unspecified Laterality: right Lung location: lower lobe of lung Qualified Code(s): J69.0 - Pneumonitis due to inhalation of food and vomit (2) Palliative care patient SNOMED Code(s): 585548130 ICD Code: Z51.5 - ENCOUNTER FOR PALLIATIVE CARE Status: Acute Priority: High (3) HTN, Benign hypertension SNOMED Code(s): 41480915 ICD Code: I10 - ESSENTIAL (PRIMARY) HYPERTENSION Status: Chronic (4) Hyperlipidemia SNOMED Code(s): 71022449 ICD Code: E78.5 - HYPERLIPIDEMIA, UNSPECIFIED Status: Chronic (5) Multiple sclerosis SNOMED Code(s): 89764200 ICD Code: G35 - MULTIPLE SCLEROSIS Status: Chronic - Patient Summary/Data Consults: Consultations 11/18/17 10:14 PT Evaluation and Treatment [CONS] Routine - Patient Instructions Diet: Usual Diet as Tolerated Activity: As Tolerated - Discharge Plan Prescriptions/Med Rec: Clindamycin HCl 300 mg PO TID 3 Days #9 capsule Home Medications: Home Meds Levothyroxine 50 mcg PO ACBRK 02/18/14 [History] Aspirin [Halfprin] 81 mg PO DAILY 09/14/16 [History] Ferrous Sulfate 325 mg PO DAILY 09/14/16 [History] Nitroglycerin 0.4 mg PO ASDIRECTED PRN 09/14/16 [History] atorvaSTATin [Lipitor] 40 mg PO DAILY 09/14/16 [History] Donepezil [Aricept] 10 mg PO BEDTIME 02/02/17 [History] Lisinopril 5 mg PO DAILY 11/15/17 [History] Memantine HCl 10 mg PO BID 11/15/17 [History] Clindamycin HCl 300 mg PO TID 3 Days #9 capsule 11/21/17 [Rx] Patient Handouts: Dysphagia, Aspiration Pneumonia - General Info Date of Service: 11/21/17 Admission Dx/Problem (Free Text: RLL Aspiration Pneumonia Subjective Update: Patient reports she is feeling much better. Breathing easy. Nursing staff has weaned her oxygen off. She is currently on RA. She is resting comfortably in chair. Functional Status: Reports: Pain Controlled, Tolerating Diet, Ambulating, Urinating. Denies: New Symptoms - Review of Systems General: Reports: Weakness, Chills. Denies: Fever, Fatigue HEENT: Reports: No Symptoms Pulmonary: Reports: Cough. Denies: Shortness of Breath, Sputum, Wheezing Cardiovascular: Reports: No Symptoms Gastrointestinal: Reports: No Symptoms Genitourinary: Reports: No Symptoms Musculoskeletal: Reports: No Symptoms Skin: Reports: No Symptoms Neurological: Reports: Confusion Psychiatric: Reports: Confusion - Patient Data Vitals - Most Recent: Last Vital Signs Temp 97.8 F 11/21/17 07:19 Pulse 37 L 11/21/17 07:19 Resp 18 11/21/17 07:19 BP 169/57 H 11/21/17 08:24 Pulse Ox 97 11/21/17 07:19 Weight - Most Recent: 126 lb 1.671 oz I&O - Last 24 hours: Intake & Output 11/20/17 11/21/17 11/21/17 22:59 06:59 14:59 Intake Total 50 50 50 Balance 50 50 50 Med Orders - Current: Current Medications Acetaminophen (Tylenol) 650 mg PO Q4H PRN PRN Reason: Pain (Mild 1-3)/fever Albuterol (Proventil Neb Soln) 2.5 mg NEB Q2H PRN PRN Reason: Shortness Of Breath/wheezing Albuterol/Ipratropium (Duoneb 3.0-0.5 Mg/3 Ml) 3 ml NEB QIDRT [facility] Last Admin: 11/21/17 11:50 Dose: 3 ml Enoxaparin Sodium (Lovenox) 30 mg SUBCUT DAILY@1600 [facility] Last Admin: 11/20/17 15:51 Dose: 30 mg Ferrous Sulfate (Ferrous Sulfate) 324 mg PO DAILY [facility] Last Admin: 11/21/17 08:24 Dose: 324 mg Clindamycin Phosphate 600 mg/ (Premix) 50 mls @ 100 mls/hr IV Q6H [facility] Last Admin: 11/21/17 11:50 Dose: 100 mls/hr Levothyroxine Sodium (Synthroid) 50 mcg PO ACBRK [facility] Last Admin: 11/21/17 06:32 Dose: 50 mcg Lisinopril (Prinivil) 5 mg PO DAILY [facility] Last Admin: 11/21/17 08:24 Dose: 5 mg Methylprednisolone Sodium Succinate (Solu-Medrol) 62.5 mg IVPUSH 0800,1600 [facility] Last Admin: 11/21/17 08:28 Dose: 62.5 mg - Exam Quality Assessment: Denies: Supplemental Oxygen General: Reports: Alert Neck: Reports: Supple Lungs: Reports: Clear to Auscultation, Normal Respiratory Effort Cardiovascular: Reports: Regular Rate, Regular Rhythm GI/Abdominal Exam: Normal Bowel Sounds, Soft, Non-Tender, No Organomegaly, No Distention, No Abnormal Bruit, No Mass, Pelvis Stable Extremities: Normal Inspection, Normal Range of Motion, Non-Tender, No Pedal Edema, Normal Capillary Refill Skin: Reports: Warm, Dry, Intact Neurological: Reports: No New Focal Deficit Psy/Mental Status: Reports: Alert, Normal Affect, Normal Mood
== END 2017-11-21 14:15 | disposition home health service (06) | DRG 178 ==
LOC: CC.MS 09:37 → UNDOADMIN 09:37 → CC.MS 10:15
PROVIDERS: ADMIT Physician Assistant Medical; ATTEND General Practice
DX: J69.0 Pneumonitis due to inhalation of food and vomit (principal); I42.9 Cardiomyopathy, unspecified; I10 Essential (primary) hypertension; E78.5 Hyperlipidemia, unspecified; G35 Multiple sclerosis; R53.1 Weakness; J45.909 Unspecified asthma, uncomplicated; I25.2 Old myocardial infarction; I35.1 Nonrheumatic aortic (valve) insufficiency; M19.90 Unspecified osteoarthritis, unspecified site; M81.0 Age-related osteoporosis without current pathological fracture; G62.9 Polyneuropathy, unspecified; F41.9 Anxiety disorder, unspecified; F03.90 Unspecified dementia, unspecified severity, without behavioral disturbance, psychotic disturbance, mood disturbance, and anxiety; E03.9 Hypothyroidism, unspecified; E53.8 Deficiency of other specified B group vitamins; Z87.891 Personal history of nicotine dependence; Z51.5 Encounter for palliative care; Z88.8 Allergy status to other drugs, medicaments and biological substances; Z87.440 Personal history of urinary (tract) infections; Z79.82 Long term (current) use of aspirin; Z79.899 Other long term (current) drug therapy
CPT/HCPCS: 36415; 80048; 85025; 94640; 97110-GP; A9270-GY; J1650; J2930

== ENCOUNTER 2020-10-07 07:58 | Emergency (ER) | payer MEDICARE, BC ==
[2020-10-07] MEDS ORDERED: fentaNYL 100 MCG/2 ML SDV IVPUSH ONE (08:32)
[2020-10-07] MEDS ORDERED: Morphine 2 MG/ML SYRINGE IVPUSH ONE ×2 (09:17→11:51)
[2020-10-07 09:33] VITALS: PULSE 66
[2020-10-07 09:51] VITALS: BP 161/75
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
[2020-10-07] MEDS ORDERED: Morphine 2 MG/ML SYRINGE ONE (11:25)
== END 2020-10-07 11:56 ==
LOC: CC.ED 07:58
DX: S72.001A Fracture of unspecified part of neck of right femur, initial encounter for closed fracture (principal); I10 Essential (primary) hypertension; E78.00 Pure hypercholesterolemia, unspecified; J45.909 Unspecified asthma, uncomplicated; F03.90 Unspecified dementia, unspecified severity, without behavioral disturbance, psychotic disturbance, mood disturbance, and anxiety; G35 Multiple sclerosis; Z88.1 Allergy status to other antibiotic agents; Z88.8 Allergy status to other drugs, medicaments and biological substances; Z79.82 Long term (current) use of aspirin; Z79.899 Other long term (current) drug therapy; W01.0XXA Fall on same level from slipping, tripping and stumbling without subsequent striking against object, initial encounter
CPT/HCPCS: 36415; 71045; 80053; 85025; 93005; 93010; 96374; 96375; 96376; 99283; 99285-25; J2270; J3010